=== PATIENT | male | born 1970 | race Caucasian/White ===

== ENCOUNTER 2017-09-01 22:31 | Emergency (ER) | payer BC ==
--- NOTE | 2017-09-01 22:45 | EDM.PDOC ---
ED HPI GENERAL MEDICAL PROBLEM - General Stated Complaint: DEBRIS IN LEFT EYE Time Seen by Provider: 09/01/17 22:42 - History of Present Illness INITIAL COMMENTS - FREE TEXT/NARRATIVE: HISTORY AND PHYSICAL: History of present illness: Patient 46-year-old male presents with a concern of swelling of his left upper eyelid he recently had been treated for what sounds like a mechanical conjunctivitis after some debris was in his eye that was removed and was on polymyxin TMP dropsy a lot of itching of his upper eye since that he has discontinued he had no globe involvement subsequent. Review of systems: As per history of present illness and below otherwise all systems reviewed and negative. Past medical history: As per history of present illness and as reviewed below otherwise noncontributory. Surgical history: As per history of present illness and as reviewed below otherwise noncontributory. Social history: No reported history of drug or alcohol abuse. Family history: As per history of present illness and as reviewed below otherwise noncontributory. Physical exam: HEENT: Atraumatic, normocephalic, pupils reactive, negative for conjunctival pallor or scleral icterus, mucous membranes moist, throat clear, neck supple, nontender, trachea midline. Patient has a little swelling and erythema of his left upper lid globe is without conjunctival injection evidence of foreign body or abrasion anterior chambers clear Diagnostics: None Therapeutics: None Impression: 1 blepharitis Definitive disposition and diagnosis as appropriate pending reevaluation and review of above. ED ROS GENERAL - Review of Systems Review Of Systems: ROS reveals no pertinent complaints other than HPI. ED EXAM, GENERAL - Physical Exam Exam: See Below (See dictation) Departure - Departure Time of Disposition: 22:44 Disposition: Home, Self-Care 01 Condition: Good Clinical Impression: Blepharitis - Discharge Information Referrals: PCP,None [Primary Care Provider] - Additional Instructions: The following information is given to patients seen in the emergency department who are being discharged to home. This information is to outline your options for follow-up care. We provide all patients seen in our emergency department with a follow-up referral. The need for follow-up, as well as the timing and circumstances, are variable depending upon the specifics of your emergency department visit. If you don't have a primary care physician on staff, we will provide you with a referral. We always advise you to contact your personal physician following an emergency department visit to inform them of the circumstance of the visit and for follow-up with them and/or the need for any referrals to a consulting specialist. The emergency department will also refer you to a specialist when appropriate. This referral assures that you have the opportunity for followup care with a specialist. All of these measure are taken in an effort to provide you with optimal care, which includes your followup. Under all circumstances we always encourage you to contact your private physician who remains a resource for coordinating your care. When calling for followup care, please make the office aware that this follow-up is from your recent emergency room visit. If for any reason you are refused follow-up, please contact the [facility] emergency department at and asked to speak to the emergency department charge nurse. Erythromycin ophthalmic ointment as directed follow-up private medical doctor as needed as discussed return as needed as discussed[]
== END 2017-09-01 23:04 | disposition home or self-care (01) ==
LOC: MW.ED 22:31
DX: H01.004 Unspecified blepharitis left upper eyelid (principal)
CPT/HCPCS: 99282; 99283

== ENCOUNTER 2017-12-24 18:57 | Emergency (ER) | payer BC ==
--- NOTE | 2017-12-24 19:30 | EDM.PDOC ---
ED HPI GENERAL MEDICAL PROBLEM - General Chief Complaint: Abdominal Pain Stated Complaint: LT LOWER RIB IS IN PAIN Time Seen by Provider: 12/24/17 19:00 Source of Information: Reports: Patient History Limitations: Reports: No Limitations - History of Present Illness INITIAL COMMENTS - FREE TEXT/NARRATIVE: HISTORY AND PHYSICAL: History of present illness: 47-year-old male presenting emergency department with chief complaint of left rib pain 2 weeks. Patient states that approximately 2 weeks ago he noticed some left-sided lower rib pain. He is unsure if he had any trauma however about that time he was cranking up his RV and may have inadvertently caused trauma to the area. Denies any problems with respiration, hemoptysis, or shortness of breath. Pain is mostly localized to the left lower rib. Denies any abdominal pain, bloody stool , or dark tarry stool. Patient is generally healthy and has no known medical allergies. On exam patient has point tenderness along 10th rib at junction of cartilage along midclavicular line. Review of systems: As per history of present illness and below otherwise all systems reviewed and negative. Past medical history: As per history of present illness and as reviewed below otherwise noncontributory. Surgical history: As per history of present illness and as reviewed below otherwise noncontributory. Social history: No reported history of drug or alcohol abuse. Family history: As per history of present illness and as reviewed below otherwise noncontributory. Physical exam: HEENT: Atraumatic, normocephalic, pupils reactive, negative for conjunctival pallor or scleral icterus, mucous membranes moist, throat clear, neck supple, nontender, trachea midline. Lungs: Clear to auscultation, breath sounds equal bilaterally, tenderness 10th rib see above H&{ Heart: S1S2, regular, negative for clicks, rubs, or JVD. Abdomen: Soft, nondistended, nontender. Negative for masses or hepatosplenomegaly. Negative for costovertebral tenderness. Pelvis: Stable nontender. Genitourinary: Deferred. Rectal: Deferred. Extremities: Atraumatic, negative for cords or calf pain. Neurovascular unremarkable. Neuro: Awake, alert, oriented. Cranial nerves II through XII unremarkable. Cerebellum unremarkable. Motor and sensory unremarkable throughout. Exam nonfocal. Diagnostics: Chest x-ray, left ribs Therapeutics: Diclofenac 50 mg by mouth twice a day 7 days Impression: Rib pain Plan: Chest and rib x-ray were unremarkable. Most likely mild tear of cartilage along 10th rib where he is point tender. Did discuss this with the patient. Did give the patient prescription for diclofenac and instructed to follow-up with primary care provider. He should return to emergency department if any new or worsening symptoms. Definitive disposition and diagnosis as appropriate pending reevaluation and review of above. LUQ abdomen Pain Score (Numeric/FACES): 4 - Related Data Allergies Allergy/AdvReac Type Severity Reaction Status Date / Time No Known Allergies Allergy Verified 12/24/17 19:10 Home Meds: Home Meds . [No Known Home Meds] 12/24/17 [History] Past Medical History - Past Health History Medical/Surgical History: Denies Medical/Surgical History Social & Family History - Family History Family Medical History: Noncontributory - Tobacco Use Smoking Status *Q: Never Smoker - Recreational Drug Use Recreational Drug Use: No ED ROS GENERAL - Review of Systems Review Of Systems: ROS reveals no pertinent complaints other than HPI. ED EXAM, GENERAL - Physical Exam Exam: See Below Course - Vital Signs Last Recorded V/S: Last Vital Signs Temp 98 F 12/24/17 18:57 Pulse 88 12/24/17 18:57 Resp 18 12/24/17 18:57 BP 157/99 H 12/24/17 18:57 Pulse Ox 98 12/24/17 18:57 - Orders/Labs/Meds Orders: Active Orders 24 hr Category Date Time Status Chest 2V [CR] Stat Exams 12/24/17 19:21 Taken Ribs 2V wo Chest Lt [CR] Stat Exams 12/24/17 19:21 Taken Labs: Laboratory Tests 12/24/17 Range/Units 19:20 Urine Color YELLOW Urine Appearance CLEAR Urine pH 6.0 (5.0-8.0) Ur Specific [place] 1.025 (1.001-1.035) Urine Protein NEGATIVE (NEGATIVE) mg/dL Urine Glucose (UA) NEGATIVE (NEGATIVE) mg/dL Urine Ketones NEGATIVE (NEGATIVE) mg/dL Urine Occult Blood SMALL H (NEGATIVE) Urine Nitrite NEGATIVE (NEGATIVE) Urine Bilirubin NEGATIVE (NEGATIVE) Urine Urobilinogen 0.2 (<2.0) EU/dL Ur Leukocyte Esterase NEGATIVE (NEGATIVE) Urine RBC 0-2 (0-2/HPF) Urine WBC 0-1 (0-5/HPF) Ur Epithelial Cells RARE (NONE-FEW) Urine Bacteria RARE (NEGATIVE) Departure - Departure Time of Disposition: 20:10 Disposition: Home, Self-Care 01 Condition: Good Clinical Impression: Rib pain on left side - Discharge Information Referrals: PCP,None [Primary Care Provider] - Forms: ED Department Discharge Additional Instructions: My general discharge The following information is given to patients seen in the emergency department who are being discharged to home. This information is to outline your options for follow-up care. We provide all patients seen in our emergency department with a follow-up referral. The need for follow-up, as well as the timing and circumstances, are variable depending upon the specifics of your emergency department visit. If you don't have a primary care physician on staff, we will provide you with a referral. We always advise you to contact your personal physician following an emergency department visit to inform them of the circumstance of the visit and for follow-up with them and/or the need for any referrals to a consulting specialist. The emergency department will also refer you to a specialist when appropriate. This referral assures that you have the opportunity for follow-up care with a specialist. All of these measure are taken in an effort to provide you with optimal care, which includes your follow-up. Under all circumstances we always encourage you to contact your private physician who remains a resource for coordinating your care. When calling for follow-up care, please make the office aware that this follow-up is from your recent emergency room visit. If for any reason you are refused follow-up, please contact the [facility] Emergency Department at and asked to speak to the emergency department charge nurse. [facility] [address] [place] [phone] Please call above number to follow-up with primary care provider. Be sure to tell them that you were seen in the emergency department and they wish for you to be seen as is possible. Take medication as prescribed. Return to emergency department if any new or worsening symptoms. - My Orders Last 24 Hours: My Active Orders 12/24/17 19:21 Chest 2V [CR] Stat Ribs 2V wo Chest Lt [CR] Stat - Assessment/Plan Last 24 Hours: My Active Orders 12/24/17 19:21 Chest 2V [CR] Stat Ribs 2V wo Chest Lt [CR] Stat
--- NOTE | 2017-12-25 13:05 | CR ---
EXAM DATE: 12/24/17 PATIENT'S AGE: 47 Patient: FRANK ROSA Facility: [place], [place] Site . Site : 1970 Study: XRay Chest [id number] 7:44:17 PM Ordering Physician: Balaji Garduno Final Report: INDICATION: Left-sided rib pain TECHNIQUE: Chest 2 views COMPARISON: May 10, 2008 FINDINGS: Cardiovascular and mediastinum: Heart size and vasculature are normal in caliber and appearance. Lungs and pleural spaces: Lungs are clear. No sign of infiltrate or mass. No sign of pleural effusion. No pneumothorax. Bones and soft tissues: No significant findings. IMPRESSION: Normal chest. No finding to explain left-sided chest pain. Dictated by Rufino Figueroa MD @ Dec 24 2017 7:48PM (Electronic Signature) Report Signed by Proxy. LEDA
--- NOTE | 2017-12-25 13:06 | CR ---
EXAM DATE: 12/24/17 PATIENT'S AGE: 47 Patient: FRANK ROSA Facility: [place], [place] Site . Site : 1970 Study: XRay Chest RIBS [id number]/4/2018 7:44:53 PM Ordering Physician: Balaji Garduno Final Report: INDICATION: Left-sided rib pain TECHNIQUE: Chest and left ribs 4 views. COMPARISON: None FINDINGS: Cardiovascular and mediastinum: Heart size and vasculature are normal in caliber and appearance. Mediastinum is within normal limits. Lungs and pleural spaces: Lungs are clear. No sign of infiltrate or mass. No sign of pleural effusion. No pneumothorax. Bones and soft tissues: Detailed oblique images of the left ribs demonstrate no fractures or bone lesions. IMPRESSION: Unremarkable left ribs. No finding to explain pain. Dictated by Rufino Figueroa MD @ Dec 24 2017 7:49PM (Electronic Signature) Report Signed by Proxy. LEDA
== END 2017-12-24 20:20 | disposition home or self-care (01) ==
LOC: MW.ED 18:57
DX: R07.81 Pleurodynia (principal)
CPT/HCPCS: 71046; 71046-26; 71100-26-LT; 71100-LT; 81001; 99283

== ENCOUNTER 2020-10-08 07:31 | Emergency (ER) | payer BC ==
--- NOTE | 2020-10-08 07:40 | EDM.PDOC ---
ED HPI GENERAL MEDICAL PROBLEM - General Stated Complaint: HEART PALPITATIONS Time Seen by Provider: 10/08/20 07:38 - History of Present Illness INITIAL COMMENTS - FREE TEXT/NARRATIVE: History of present illness: [] This patient has palpitations and has happened 25 times in last 24 hours. Throughout his life he has been troubled by similar symptoms that have been about once a week. He is never collapsed or felt like he would pass out. What happens is he feels like his heart stops. Then he feels like it flutters for a little bit and you short of breath for less than a minute. He has no diaphoresis or nausea when it happens. He is a non-smoker and not diabetic. He does have blood pressure issues that have never been treated. The family has no history of heart attacks or strokes. He noticed that when he used to chew tobacco he would have palpitations and also if he drink much coffee. He still drinks coffee. His alcohol intake is about 1 beer a week. Review of systems: As per history of present illness and below otherwise all systems reviewed and negative. Past medical history: As per history of present illness and as reviewed below otherwise noncontributory. Surgical history: As per history of present illness and as reviewed below otherwise noncontributory. Social history: No reported history of drug or alcohol abuse. Family history: As per history of present illness and as reviewed below otherwise noncontributor y. Physical exam: Constitutional - well developed, well-nourished and in no acute distress HEENT - normocephalic, no evidence of trauma - external nose and mouth normal - no mass in neck and no JVD - mucosae moist EYES - full EOM, PERRL, no icterus - no evidence of inflammation, injection, or drainage Respiratory - no respiratory distress, equal bilateral expansion, lungs clear to auscultation and no abnormal lung sounds Cardiovascular - Regular Rhythm with S1 and S2 appreciated and no murmur, gallop or rub. GI - abdomen soft without distension or organomegaly - normal bowel sounds - no guard or rebound Musculoskeletal no gross deformity of long bones or joints - no tenderness, swelling or edema Neurologic - Alert and oriented times four - CN II-XII grossly intact - motor sensory and coordination symmetrically normal Psychiatric - appropriate mood and affect with normal thought content Hematologic - No petechiae or purpura - mucosa appropriate color and sclera not pale - normal nail bed color and refill Integument - no rash or evidence of trauma - normal turgor Diagnostics: [] Therapeutics: [] Impression: [] Plan: [] Definitive disposition and diagnosis as appropriate pending reevaluation and review of above. - Related Data Allergies Allergy/AdvReac Type Severity Reaction Status Date / Time No Known Allergies Allergy Verified 10/08/20 07:56 Home Meds: Home Meds . [No Known Home Meds] 12/24/17 [History] Past Medical History - Past Health History Medical/Surgical History: Denies Medical/Surgical History Social & Family History - Family History Family Medical History: No Pertinent Family History ED ROS GENERAL - Review of Systems Review Of Systems: Comprehensive ROS is negative, except as noted in HPI. ED EXAM, GENERAL - Physical Exam Exam: See Below Free Text/Narrative:: My physical exam is in the HPI #1 Interpretation EKG Interpretation Comments: EKG sinus rhythm heart rate 89 [place] 156 [place] 68 QT duration 436 QRS has an RSR prime in V1 V2 ST and T are normal there is no prior for comparison impression this is essentially normal EKG Course - Vital Signs Text/Narrative:: The patient did not have an episode while he was on the monitor here. I do not see any benefit to admitting him because you probably not have an episode while he is here. A 2-week Zio patch is placed and the patient will follow with cardiology and primary care. BUN was 24 and he will be advised to maintain adequate hydration. Last Recorded V/S: Last Vital Signs Temp 36.7 C 10/08/20 07:42 Pulse 78 10/08/20 09:01 Resp 18 10/08/20 09:01 BP 122/86 10/08/20 09:01 Pulse Ox 98 10/08/20 09:01 - Orders/Labs/Meds Orders: Active Orders 24 hr Category Date Time Status EKG Documentation Completion [RC] AM Care 10/08/20 07:41 Active Telemetry Monitoring [Cardiac Monitoring] [RC] . Care 10/08/20 07:42 Active DIRECTED Sodium Chloride 0.9% [Saline Flush] Med 10/08/20 07:41 Active 10 ml FLUSH ASDIRECTED PRN Sodium Chloride 0.9% [Saline Flush] Med 10/08/20 07:41 Active 2.5 ml FLUSH ASDIRECTED PRN Saline Lock Insert [OM.PC] Stat Oth 10/08/20 07:41 Ordered Medication Orders Sodium Chloride (Sodium Chloride 0.9% 10 Ml Syringe) 10 ml FLUSH ASDIRECTED PRN PRN Reason: Keep Vein Open Last Admin: 10/08/20 07:57 Dose: 10 ml Documented by: DAMI Sodium Chloride (Sodium Chloride 0.9% 2.5 Ml Syringe) 2.5 ml FLUSH ASDIRECTED PRN PRN Reason: Keep Vein Open Last Admin: 10/08/20 07:57 Dose: 2.5 ml Documented by: DAMI Labs: Laboratory Tests 10/08/20 10/08/20 Range/Units 07:46 07:46 WBC 9.74 (4.0-11.0) K/uL RBC 4.92 (4.50-5.90) M/uL Hgb 14.6 (13.0-17.0) g/dL Hct 42.8 (38.0-50.0) % MCV 87.0 (80.0-98.0) fL MCH 29.7 (27.0-32.0) pg MCHC 34.1 (31.0-37.0) g/dL RDW Std Deviation 41.0 (28.0-62.0) fl RDW Coeff of Billie 13 (11.0-15.0) % Plt Count 335 (150-400) K/uL MPV 10.00 (7.40-12.00) fL Neut % (Auto) 67.2 (48.0-80.0) % Lymph % (Auto) 21.3 (16.0-40.0) % Hale % (Auto) 8.3 (0.0-15.0) % Eos % (Auto) 2.7 (0.0-7.0) % Baso % (Auto) 0.5 (0.0-1.5) % Neut # (Auto) 6.6 H (1.4-5.7) K/uL Lymph # (Auto) 2.1 (0.6-2.4) K/uL Hale # (Auto) 0.8 (0.0-0.8) K/uL Eos # (Auto) 0.3 (0.0-0.7) K/uL Baso # (Auto) 0.1 (0.0-0.1) K/uL Nucleated RBC % 0.0 /100WBC Nucleated RBCs # 0 K/uL Sodium 139 (136-148) mmol/L Potassium 3.8 (3.5-5.1) mmol/L Chloride 102 (98-107) mmol/L Carbon Dioxide 29.7 (21.0-32.0) mmol/L BUN 24 H (7.0-18.0) mg/dL Creatinine 1.1 (0.8-1.3) mg/dL Est Cr Clr Drug Dosing 84.80 mL/min Estimated GFR (MDRD) > 60.0 ml/min Glucose 104 (74-106) mg/dL Calcium 8.9 (8.5-10.1) mg/dL Magnesium 2.1 (1.8-2.4) mg/dL Total Bilirubin 0.5 (0.2-1.0) mg/dL AST 16 (15-37) IU/L ALT 24 (14-63) IU/L Alkaline Phosphatase 56 (46-116) U/L Troponin I < 0.050 (0.000-0.056) ng/mL Total Protein 7.8 (6.4-8.2) g/dL Albumin 3.7 (3.4-5.0) g/dL Globulin 4.1 H (2.6-4.0) g/dL Albumin/Globulin Ratio 0.9 (0.9-1.6) TSH, Ultra Sensitive 1.73 (0.36-3.74) uIU/mL Meds: Medications Generic Name Dose Route Start Last Admin Trade Name Salvadorq PRN Reason Stop Dose Admin Sodium Chloride 10 ml 10/08/20 07:41 10/08/20 07:57 Sodium Chloride 0.9% 10 Ml Syringe FLUSH 10 ml ASDIRECTED PRN Administration Keep Vein Open Sodium Chloride 2.5 ml 10/08/20 07:41 10/08/20 07:57 Sodium Chloride 0.9% 2.5 Ml Syringe FLUSH 2.5 ml ASDIRECTED PRN Administration Keep Vein Open Departure - Departure Time of Disposition: 09:16 Disposition: Home, Self-Care 01 Condition: Good Clinical Impression: Palpitations, Dehydration, High blood pressure - Discharge Information Instructions: Dehydration, Adult, [id number], Preventing Hypertension, Palpitations Referrals: PCP,None [Primary Care Provider] - Additional Instructions: You need to make an appointment with primary care to reevaluate your blood pressure and manage it. You need to stay well-hydrated. You need to follow-up with cardiology to check the results of your Zio patch. Need to return if your palpitations cause you to feel like you are going to pass out or you have significant amount of chest pain. [facility] - cardiology [address] [place] [id number] [facility] - Primary Care [address], [place] [address] [facility] [address] [place] [phone] The following information is given to patients seen in the emergency department who are being discharged to home. This information is to outline your options for follow-up care. We provide all patients seen in our emergency department with a follow-up referral. The need for follow-up, as well as the timing and circumstances, are variable depending upon the specifics of your emergency department visit. If you don't have a primary care physician on staff, we will provide you with a referral. We always advise you to contact your personal physician following an emergency department visit to inform them of the circumstance of the visit and for follow-up with them and/or the need for any referrals to a consulting specialist. The emergency department will also refer you to a specialist when appropriate. This referral assures that you have the opportunity for follow-up care with a specialist. All of these measure are taken in an effort to provide you with optimal care, which includes your follow-up. Under all circumstances we always encourage you to contact your private physician who remains a resource for coordinating your care. When calling for follow-up care, please make the office aware that this follow-up is from your recent emergency room visit. If for any reason you are refused follow-up, please contact the [facility] Emergency Department at and asked to speak to the emergency department charge nurse. Sepsis Event Note (ED) - Focused Exam Vital Signs: Vital Signs Temp Pulse Resp BP Pulse Ox 10/08/20 09:01 78 18 122/86 98 10/08/20 08:15 86 18 129/92 H 98 10/08/20 07:42 36.7 C 88 18 163/96 H 98 - My Orders Last 24 Hours: My Active Orders 10/08/20 07:41 EKG Documentation Completion [RC] AM Sodium Chloride 0.9% [Saline Flush] 10 ml FLUSH ASDIRECTED PRN Sodium Chloride 0.9% [Saline Flush] 2.5 ml FLUSH ASDIRECTED PRN Saline Lock Insert [OM.PC] Stat 10/08/20 07:42 Telemetry Monitoring [Cardiac Monitoring] [RC] . DIRECTED - Assessment/Plan Last 24 Hours: My Active Orders 10/08/20 07:41 EKG Documentation Completion [RC] AM Sodium Chloride 0.9% [Saline Flush] 10 ml FLUSH ASDIRECTED PRN Sodium Chloride 0.9% [Saline Flush] 2.5 ml FLUSH ASDIRECTED PRN Saline Lock Insert [OM.PC] Stat 10/08/20 07:42 Telemetry Monitoring [Cardiac Monitoring] [RC] . DIRECTED
[2020-10-08] MEDS ORDERED: Sodium Chloride 0.9% 2.5 ML Syringe FLUSH PRN (07:41)
[2020-10-08] MEDS ORDERED: Sodium Chloride 0.9% 10 ML Syringe FLUSH PRN (07:41)
--- NOTE | 2020-10-08 08:38 | CR ---
INDICATION: Shortness of breath TECHNIQUE: Chest 1 views COMPARISON: December 24, 2017 FINDINGS: Cardiovascular and mediastinum: Heart size and vasculature are normal in caliber and appearance. Lungs and pleural spaces: Lungs are clear. No sign of infiltrate or mass. No sign of pleural effusion. No pneumothorax. Bones and soft tissues: No significant findings. IMPRESSION: No acute findings and no significant changes from the prior exam. Dictated by Rufino Figueroa MD @ 10/08/2020 8:37:[address] Rufino Figueroa @ Oct 08 2020 8:37AM
[2020-10-08 08:43] LABS: BLOOD UREA NITROGEN,BUN 24 mg/dL (7.0-18.0); CARBON DIOXIDE,CO2 29.7 mmol/L (21.0-32.0); CHLORIDE,CL 102 mmol/L (98-107); GLUCOSE RANDOM 104 mg/dL (74-106); POTASSIUM,K 3.8 mmol/L (3.5-5.1); SODIUM,NA 139 mmol/L (136-148)
== END 2020-10-08 09:27 | disposition home or self-care (01) ==
LOC: MW.ED 07:31
DX: R00.2 Palpitations (principal); E86.0 Dehydration; I10 Essential (primary) hypertension
CPT/HCPCS: 36415; 71045; 71045-26; 80053; 83735; 84443; 84484; 85025; 93005; 93010; 99283; 99285-25